=== PATIENT | female | born 1955 | race Caucasian/White ===

== ENCOUNTER 2024-02-13 11:48 | Outpatient (RCR) | payer MEDICARE, SELFPAY ==
--- NOTE | 2024-02-10 10:45 | ONC.NURNOTE ---
Dx: rectal cancer
== END 2024-08-11 23:59 | disposition home or self-care (01) ==
LOC: CCIC 11:48
PROVIDERS: PCP Student in an Organized Health Care Education/Training Program; Referring Provider Student in an Organized Health Care Education/Training Program; Visit Provider Radiology Radiation Oncology
DX: C20 Malignant neoplasm of rectum (principal)
CPT/HCPCS: 99211